=== PATIENT | male | born 1990 | race Caucasian/White ===

== ENCOUNTER 2018-02-13 08:08 | Emergency (ER) | payer BC ==
[2018-02-13 08:13] VITALS: BP 143/80; PULSE 70; TEMP 98.1; BMI 23.6
--- NOTE | 2018-02-13 08:48 | PDOC ---
History of Present Illness - General Chief Complaint: Pain, Acute Stated Complaint: LEFT EAR PAIN Time Seen by Provider: 02/13/18 08:09 - History of Present Illness Initial Comments: 02/13/18 08:51 27 M with no PMH presents to ED with 3 days of L ear pain. Pt states that he first noticed it when he put in his ear buds. He reports swelling and pain inside the ear canal. Denies F/C. Denies URI symptoms. Pt states that he had a similar problem in the past and was found to have an abscess in his ear that spontaneously burst. Denies any hearing loss but states that the hearing in his L ear is muffled because of the swelling. Pt states that he frequently uses in-the-ear headphones when listening to music. Past History - Past Medical History Allergies/Adverse Reactions: Allergies Allergy/AdvReac Type Severity Reaction Status Date / Time No Known Allergies Allergy Verified 02/13/18 08:08 Home Medications: Ambulatory Orders Ciprofloxacin [Cipro -] 500 mg PO Q12H #10 tablet 02/13/18 COPD: No Other medical history: DENIES - Suicide/Smoking/Psychosocial Hx Smoking History: Never smoked Hx Alcohol Use: No Drug/Substance Use Hx: No Substance Use Type: None Review of Systems - Review of Systems Comments:: 02/13/18 08:53 "GENERAL/CONSTITUTIONAL: No fever or chills. No weakness. HEAD, EYES, EARS, NOSE AND THROAT: + L ear pain, No change in vision. No sore throat. CARDIOVASCULAR: No chest pain, no shortness of breath, no loss of consciousness RESPIRATORY: No cough, wheezing, or hemoptysis. GASTROINTESTINAL: No nausea, vomiting, diarrhea or constipation. GENITOURINARY: No dysuria, frequency, or change in urination. MUSCULOSKELETAL: No joint or muscle swelling or pain. No neck or back pain. SKIN: No rash NEUROLOGIC: No vertigo, no change in strength/sensation. ENDOCRINE: No increased thirst. No abnormal weight change. HEMATOLOGIC/LYMPHATIC: No anemia, easy bleeding, or history of blood clots. ALLERGIC/IMMUNOLOGIC: No hives or skin allergy. *Physical Exam - Vital Signs Last Vital Signs Temp Pulse Resp BP Pulse Ox 98.1 F 70 16 143/80 100 02/13/18 08:08 02/13/18 08:08 02/13/18 08:08 02/13/18 08:08 02/13/18 08:08 - Physical Exam Comments: 02/13/18 08:54 GENERAL: Awake, alert, and fully oriented, in no acute distress. HEAD: No signs of trauma EYES: PERRLA, EOMI, sclera anicteric, conjunctiva clear ENT: + L external auditory canal with 1cm fluctuant mass, no significant erythema, Auricles normal inspection, hearing grossly normal, TMs wnl, nares patent, oropharynx clear without exudates. Moist mucosa NECK: Nontender, no stepoffs, Normal ROM, supple, no lymphadenopathy, JVD, or masses LUNGS: Breath sounds equal, clear to auscultation bilaterally. No wheezes, and no crackles HEART: Regular rate and rhythm, normal S1 and S2, no murmurs, rubs or gallops ABDOMEN: Soft, nontender, normoactive bowel sounds. No guarding, no rebound. No masses EXTREMITIES: Normal range of motion, no edema. No clubbing or cyanosis. No cords, erythema, or tenderness NEUROLOGICAL: Cranial nerves II through XII intact. 5/5 strength and sensation in all extremities, Normal speech, normal gait, normal cerebellar function SKIN: Warm, Dry, normal turgor, no rashes or lesions noted. Procedures - Incision and Drainage I&D Site: Left: Other (ear) Betadine cleansed: Yes Blade Size: 11 Attempts: 1 Plain Packing: No Medical Decision Making - Medical Decision Making 02/13/18 08:56 27 M with abscess in L external auditory canal, likely 2/2 earbud use. Pt with no systemic symptoms. TMs normal, no signs of otitis media. - Abscess drained with expression of ~2ccs of purulent fluid - Will cover with cipro for pseudomonas coverage - F/u ENT Pt is well appearing, with normal vitals. Clinically stable for DC at this time. I discussed the physical exam findings, ancillary test results and final diagnoses with the patient. I answered all of the patient's questions. The patient was satisfied with the care received and felt comfortable with the discharge plan and treatment plan. The patient agrees to follow up with the primary care physician within 24-72 hours. *DC/Admit/Observation/Transfer Diagnosis at time of Disposition: Abscess, ear canal - Discharge Dispostion Disposition: HOME Condition at time of disposition: Stable - Prescriptions Prescriptions: Ciprofloxacin [Cipro -] 500 mg PO Q12H #10 tablet - Referrals Referrals: Vee Younger [Primary Care Provider] - Brady Ferreira MD [Staff Physician] - - Patient Instructions Printed Discharge Instructions: DI for Skin Abscess Additional Instructions: You had an abscess in your ear. This is likely due to your in-the-ear headphones. Avoid using this type of headphone in the future. Take the antibiotics as prescribed (ciprofloxacin twice daily). AVOID any heavy lifting while you are on the antibiotics, as ciprofloxacin can put you at risk of tendon injury. Call the number provided to make an appointment with our ENT, Dr. Ferreira. If you experience worsening pain, swelling, fevers, or any other concerning symptoms, return to the ER immediately. - Post Discharge Activity - Attestations Physician Attestion: 02/13/18 09:02 I, Dr. Alvarado Hoang MD, attest that this document has been prepared under my direction and personally reviewed by me in its entirety. I further attest, that it accurately reflects all work, treatment, procedures and medical decision -making performed by me.
== END 2018-02-13 09:10 | disposition home or self-care (01) ==
LOC: FER 08:08
PROC: 09910ZZ Drainage of Left External Ear, Open Approach (ICD-10-PCS; principal; 2018-02-13)
DX: H60.02 Abscess of left external ear (principal)
CPT/HCPCS: 99282-25

== ENCOUNTER 2018-03-14 23:53 | Emergency (ER) | payer BC ==
[2018-03-14 23:59] VITALS: BP 129/76; PULSE 95; TEMP 99; BMI 24.7
--- NOTE | 2018-03-15 00:29 | PDOC ---
History of Present Illness <Vidya Shin - Last Filed: 03/15/18 01:13> - History of Present Illness Initial Comments: 03/15/18 01:55 This is a 27 year old male, with no significant past medical history, who presents to the emergency department today with multiple complaints. Patient notes he began experiencing a constant runny nose and productive cough with green sputum 1 week ago . He also reports that last night, he began uncontrollably shivering with associated chills and a cold sweat, which transitioned into a subjective fever. Upon waking up this morning he was asymptomatic, but began experiencing right-sided flank pain which is what prompted his visit to the ED tonight. He states his pain is exacerbated with deep breaths. Patient confirms family members diagnosed with walking PNA and bronchitis recently. Also reports a mild gradual onset bitemporal headache earlier today that resolved. No stiff neck. No treatments tried. The patient denies chest pain, shortness of breath, and dizziness. Denies LE edema, calf pain, recent immobility, hormone use. Denies fever, chills, nausea, vomit, diarrhea and constipation. Denies sore throat, rash, or abdominal pain. Denies dysuria, frequency, urgency and hematuria. Allergies: NKA Past surgical history: None reported Social history: Denies tobacco use. PCP: Dr. Younger <Sofia Greenwood - Last Filed: 03/15/18 03:02> - General Chief Complaint: Respiratory Stated Complaint: COUGH RUNNY NOSE BACK PAIN Time Seen by Provider: 03/15/18 00:17 Past History <Vidya Shin - Last Filed: 03/15/18 01:13> - Past Medical History COPD: No - Suicide/Smoking/Psychosocial Hx Smoking History: Never smoked Have you smoked in the past 12 months: No Information on smoking cessation initiated: No Hx Alcohol Use: No Drug/Substance Use Hx: No Substance Use Type: None <Sofia Greenwood - Last Filed: 03/15/18 03:02> - Past Medical History Allergies/Adverse Reactions: Allergies Allergy/AdvReac Type Severity Reaction Status Date / Time No Known Allergies Allergy Verified 03/14/18 23:55 Home Medications: Ambulatory Orders NK [No Known Home Medication] 03/14/18 Review of Systems - Review of Systems Comments:: 03/15/18 01:56 GENERAL/CONSTITUTIONAL: +Subjective fever. +Chills. +Cold sweats. No weakness. HEAD, EYES, EARS, NOSE AND THROAT: +Runny nose. No change in vision. No ear pain or discharge. No sore throat. GASTROINTESTINAL: No nausea, vomiting, diarrhea or constipation. GENITOURINARY: No dysuria, frequency, or change in urination. CARDIOVASCULAR: No chest pain or shortness of breath. RESPIRATORY: +Productive cough with green sputum. No wheezing or hemoptysis. MUSCULOSKELETAL: +Right-sided flank pain. No joint or muscle swelling or pain. No neck pain. SKIN: No rash NEUROLOGIC: +Mild headache. No vertigo, loss of consciousness, or change in strength/sensation. ENDOCRINE: No increased thirst. No abnormal weight change. HEMATOLOGIC/LYMPHATIC: No anemia, easy bleeding, or history of blood clots. ALLERGIC/IMMUNOLOGIC: No hives or skin allergy. <Sofia Greenwood - Last Filed: 03/15/18 03:02> *Physical Exam - Vital Signs Last Vital Signs Temp Pulse Resp BP Pulse Ox 99 F 95 H 16 129/76 100 03/14/18 23:57 03/14/18 23:57 03/14/18 23:57 03/14/18 23:57 03/14/18 23:57 <Vidya Shin - Last Filed: 03/15/18 01:13> - Vital Signs Last Vital Signs Temp Pulse Resp BP Pulse Ox 99 F 95 H 16 129/76 100 03/14/18 23:57 03/14/18 23:57 03/14/18 23:57 03/14/18 23:57 03/14/18 23:57 - Physical Exam Comments: 03/15/18 01:57 GENERAL: Awake, alert, and fully oriented, in no acute distress HEAD: No signs of trauma EYES: PERRLA, EOMI, sclera anicteric, conjunctiva clear ENT: Auricles normal inspection, hearing grossly normal, nares patent, oropharynx clear without exudates, petechiae or erythema. Moist mucosa NECK: Normal ROM, supple, no lymphadenopathy, JVD, or masses LUNGS: Breath sounds equal, clear to auscultation bilaterally. No wheezes, and no crackles HEART: Regular rate and rhythm, normal S1 and S2, no murmurs, rubs or gallops ABDOMEN: Soft, nontender, normoactive bowel sounds. No guarding, no rebound. No masses EXTREMITIES: Normal range of motion, no edema. No clubbing or cyanosis. No cords , erythema, or tenderness BACK: +R flank tenderness over ribs. No midline spinal tenderness in cervical/ thoracic/lumbar region NEUROLOGICAL: Normal speech, cranial nerves intact, negative pronator drift, 5/ 5 strength in all 4 extremities, normal sensation to light touch in all 4 extremities, normal cerebellar exam, normal gait, normal tone SKIN: Warm, Dry, normal turgor, no rashes or lesions noted. <Sofia Greenwood - Last Filed: 03/15/18 03:02> Moderate Sedation - Procedure Monitoring Vital Signs: Procedure Monitoring Vital Signs Temperature 99 F 03/14/18 23:57 Pulse Rate 95 H 03/14/18 23:57 Respiratory Rate 16 03/14/18 23:57 Blood Pressure 129/76 03/14/18 23:57 O2 Sat by Pulse Oximetry (%) 100 03/14/18 23:57 <Vidya Shin - Last Filed: 03/15/18 01:13> - Procedure Monitoring Vital Signs: Procedure Monitoring Vital Signs Temperature 99 F 03/14/18 23:57 Pulse Rate 95 H 03/14/18 23:57 Respiratory Rate 16 03/14/18 23:57 Blood Pressure 129/76 03/14/18 23:57 O2 Sat by Pulse Oximetry (%) 100 03/14/18 23:57 <Sofia Greenwood - Last Filed: 03/15/18 03:02> ED Treatment Course - LABORATORY CBC & Chemistry Diagram: 03/15/18 01:30 03/15/18 01:21 <Kashmir Greenwoodmnjose de jesus - Last Filed: 03/15/18 03:02> Medical Decision Making - Medical Decision Making 03/15/18 02:00 27yo M presents to the ED with 1 week of cough, runny nose, followed by chills and fever last night, and new R flank pain today prompting ED visit. Vitals unremarkable, exam with R flank ttp. DDx includes UTI vs viral syndrome vs PNA vs MSK pain. Plan -labs -cxr -ua -reassess Given duration of sxs (1 week), will hold off on flu swab as pt has no comorbidities. 03/15/18 02:57 LAbs with leukocytosis to 20 UA negative for infection CXR clear Likely viral syndrome Pt is non toxic in appearance, well appearing with normal vitals. Will hold off on antibiotics as no bacterial source at this time to treat Results explained to pt Pt to follow up with PMD within 1-2 days for rpt labs and evaluation Strict return precautions given I discussed the physical exam findings, ancillary test results and final diagnoses with the patient. I answered all of the patient's questions. The patient was satisfied with the care received and felt comfortable with the discharge plan and treatment plan. The patient will call their primary care physician within 24 hours to arrange follow-up and will return to the Emergency Department with any new, persistent or worsening symptoms. <Sofia Greenwood - Last Filed: 03/15/18 03:02> *DC/Admit/Observation/Transfer - Attestations Scribe Attestion: 03/15/18 01:13 Documentation prepared by RYANN Hugo, acting as medical office worker for Sofia Greenwood MD. <Vidya Shin - Last Filed: 03/15/18 01:13> - Discharge Dispostion Decision to Admit order: No - Attestations Physician Attestion: 03/15/18 03:02 I, Dr. Sofia Greenwood MD, attest that this document has been prepared under my direction and personally reviewed by me in its entirety. I further attest, that it accurately reflects all work, treatment, procedures and medical decision -making performed by me. <Sofia Greenwood - Last Filed: 03/15/18 03:02> Diagnosis at time of Disposition: Fever, Flank pain, Chills - Discharge Dispostion Disposition: HOME Condition at time of disposition: Stable - Patient Instructions Printed Discharge Instructions: DI for Viral Syndrome Additional Instructions: As discussed, follow up with your primary doctor within 1-2 days. Have your doctor repeat your labs as your white count was elevated to 20 which is a sign of infection. Drink plenty of fluids and stay hydrated Return to the emergency department if you have any new, worsening, or concerning symptoms
[2018-03-15 02:07] LABS: URINE APPEARANCE CLEAR; URINE BILIRUBIN NEGATIVE (<2.0 mg/dL); URINE COLOR LTYELLOW; URINE GLUCOSE (UA) NEGATIVE (NEGATIVE); URINE KETONE NEGATIVE (NEGATIVE); URINE LEUK ESTERASE NEGATIVE (NEGATIVE); URINE NITRITE NEGATIVE (NEGATIVE); URINE PROTEIN NEGATIVE (NEGATIVE)
[2018-03-15 02:11] LABS: BASO % 0.2 % (0-2.0); EOS % 0.5 % (0-4.5); HEMATOCRIT 37.1 % (35.4-49); LYMPH % 10.8 % (8-40); MCH 30.1 pg (25.7-33.7); MEAN CELL VOLUME 85.8 fl (80-96); MEAN PLT VOLUME 10.2 fl (7.5-11.1); MONO % 5.9 % (3.8-10.2); NEUT % 82.6 % (42.8-82.8); PLATELET COUNT 197 K/MM3 (134-434); RBC 4.32 M/mm3 (4.00-5.60); RDW 14.9 % (11.9-15.9); WHITE BLOOD COUNT 20.2 K/mm3 (4.0-10.0)
[2018-03-15 02:26] LABS: ALBUMIN 3.3 g/dl (3.4-5.0); ALK PHOS 63 U/L (45-117); ANION GAP 6 MMOL/L (8-16); BILIRUBIN,TOTAL 0.2 mg/dL (0.2-1); BLOOD UREA NITROGEN 21 mg/dL (7-18); CALCIUM 8.4 mg/dL (8.5-10.1); CHLORIDE 100 mmol/L (98-107); CO2 31 mmol/L (21-32); CREATININE 1.2 mg/dL (0.55-1.3); GLUCOSE,RANDOM 89 mg/dL (74-106); POTASSIUM 3.4 mmol/L (3.5-5.1); SGOT/AST 25 U/L (15-37); SGPT/ALT 59 U/L (13-61); SODIUM 137 mmol/L (136-145); TOT PROT 6.8 g/dl (6.4-8.2)
[2018-03-15 05:29] LABS: PLATELET ESTIMATE ADEQUATE
== END 2018-03-15 03:07 | disposition home or self-care (01) ==
LOC: FER 23:53
DX: R50.9 Fever, unspecified (principal); R10.9 Unspecified abdominal pain
CPT/HCPCS: 36415; 71046-TC-FY; 80053; 81003; 85025; 87086; 99282-25

== ENCOUNTER 2020-03-28 11:10 | Emergency (ER) | payer BC, OTHER | END 2020-03-28 12:07 | disposition home or self-care (01) | LOC: JVIRT 11:10 | DX: Z03.818 Encounter for observation for suspected exposure to other biological agents ruled out (principal) | CPT/HCPCS: C9803; Q3014-GT; U0003 ==

== ENCOUNTER 2021-11-19 19:27 | Emergency (ER) | payer BC ==
[2021-11-19 19:38] VITALS: BP 113/69; PULSE 70; RESP 18; TEMP 98.1; BMI 24.2
[2021-11-19] MEDS ORDERED: LIDOCAINE 1%/EPI 1:100000 (20 ML MULTI DOSE VIAL) ONE (20:48)
[2021-11-19] MEDS ORDERED: KETOROLAC TROMETHAMINE 30 MG/1 ML VIAL IVPUSH ONE (22:06)
[2021-11-19] MEDS ORDERED: KETOROLAC TROMETHAMINE 30 MG/1 ML VIAL ONE (22:11)
[2021-11-19] MEDS ORDERED: CEFTRIAXONE 1 GM/50 ML BAG ONE (22:13)
== END 2021-11-19 22:28 | disposition home or self-care (01) ==
LOC: JERFT 19:27
PROC: 0H92XZZ Drainage of Right Ear Skin, External Approach (ICD-10-PCS; principal; 2021-11-19)
PROC: 3E033GC Introduction of Other Therapeutic Substance into Peripheral Vein, Percutaneous Approach (ICD-10-PCS; 2021-11-19)
DX: H60.01 Abscess of right external ear (principal)
CPT/HCPCS: 99284-25

== ENCOUNTER 2022-06-24 05:45 | Emergency (ER) | payer BC ==
[2022-06-24 05:51] VITALS: BP 124/78; PULSE 78; RESP 18; TEMP 97.8; BMI 24.2
[2022-06-24] MEDS ORDERED: NEOMYCIN/POLYMYXN/HC OTIC SUSPENSION 10 ML BOTTLE ONE (06:01)
[2022-06-24] MEDS ORDERED: AMOX TR/POT CLAV 875MG/125MG TABLETS (FP) PO ONE (06:05)
[2022-06-24] MEDS ORDERED: IBUPROFEN 600 MG TABLET (FP) PO ONE ×2 (06:06→06:23)
[2022-06-24] MEDS ORDERED: AMOX TR/POT CLAV 875MG/125MG TABLETS (FP) ONE (06:21)
== END 2022-06-24 06:30 | disposition home or self-care (01) ==
LOC: FER 05:45
DX: H60.91 Unspecified otitis externa, right ear (principal)
CPT/HCPCS: 99283-25

== ENCOUNTER 2023-06-26 20:00 | Emergency (ER) | payer BC ==
[2023-06-26 20:04] VITALS: RESP 18; BMI 25.4
[2023-06-26] MEDS ORDERED: ACETAMINOPHEN INJECTION 100 ML IVPB ONE (20:49)
[2023-06-26] MEDS ORDERED: FAMOTIDINE 20 MG/50 ML IVPB 20 MG/50 ML MG IVPB ONE (20:49)
[2023-06-26 20:54] LABS: BASO % 0.5 % (0-2.0); EOS % 13.7 % (0-4.5); HEMATOCRIT 43.1 % (35.4-49); HEMOGLOBIN 13.9 GM/dL (11.7-16.9); LYMPH % 15.4 % (8-40); MCH 30.4 pg (25.7-33.7); MCHC 32.3 g/dl (32.0-35.9); MEAN CELL VOLUME 94.1 fl (80-96); MONO % 3.8 % (3.8-10.2); NEUT % 66.6 % (42.8-82.8); PLATELET COUNT 224 10^3/uL (134-434); RBC 4.59 M/mm3 (4.00-5.60); RDW 13.7 % (11.9-15.9); WHITE BLOOD COUNT 12.9 K/mm3 (4.0-10.0)
[2023-06-26] MEDS: FAMOTIDINE 20 MG/50 ML IVPB 20 MG/50 ML MG IVPB ONE (20:55)
[2023-06-26] MEDS: ACETAMINOPHEN 1000 MG/100 ML BAG IVPB ONE (20:55)
[2023-06-26] MEDS: LACTATED RINGERS SOLUTION 1000 ML INFUS.BAG IV ONE (20:55)
[2023-06-26 21:01] LABS: INR 1.07 (0.83-1.09); PROTHROMBIN TIME (PATIENT) 12.4 SEC (9.7-13.0)
[2023-06-26 21:03] LABS: ACTIVATED PTT 29.6 SECONDS (25.2-36.5)
[2023-06-26 21:11] LABS: POTASSIUM 4.3 mmol/L (3.5-5.1)
[2023-06-26 21:13] LABS: BLOOD UREA NITROGEN 13.3 mg/dL (7-18); CALCIUM 9.2 mg/dL (8.5-10.1)
[2023-06-26 21:14] LABS: ALBUMIN 3.6 g/dl (3.4-5.0)
[2023-06-26 21:18] LABS: BILIRUBIN,TOTAL 0.4 mg/dL (0.2-1); TOT PROT 6.7 g/dl (6.4-8.2)
[2023-06-26] MEDS ORDERED: morphine SULFATE 4 MG/ML VIAL ONE (21:53)
[2023-06-26] MEDS ORDERED: PANTOPRAZOLE SODIUM 40 MG VIAL ONE (21:53)
[2023-06-26] MEDS: morphine SULFATE 4 MG/ML VIAL IVPUSH ONE (22:03)
[2023-06-26] MEDS: PANTOPRAZOLE SODIUM 40 MG VIAL IVPUSH ONE (22:04)
[2023-06-27 01:15] VITALS: BP 136/76; PULSE 65; TEMP 98.1
== END 2023-06-27 01:15 | disposition home or self-care (01) ==
LOC: JER 20:00
PROC: 3E033GC Introduction of Other Therapeutic Substance into Peripheral Vein, Percutaneous Approach (ICD-10-PCS; principal; 2023-06-26)
PROC: 3E033GC Introduction of Other Therapeutic Substance into Peripheral Vein, Percutaneous Approach (ICD-10-PCS; 2023-06-26)
PROC: 3E033GC Introduction of Other Therapeutic Substance into Peripheral Vein, Percutaneous Approach (ICD-10-PCS; 2023-06-26)
PROC: 3E033GC Introduction of Other Therapeutic Substance into Peripheral Vein, Percutaneous Approach (ICD-10-PCS; 2023-06-26)
DX: R10.13 Epigastric pain (principal)
CPT/HCPCS: 36415; 74177-TC; 76705-TC; 80053; 83690; 85025; 85610; 85730; 99285-25; J0131; Q9967